=== PATIENT | male | born 1960 | race Caucasian/White ===

== ENCOUNTER 2017-01-25 14:45 | Day surgery (SDC) | payer BC ==
--- NOTE | ~2017-01-25 | OP ---
Record Of Operation [facility] [address] [place]. [address] NAME: TAMMY LOREDO : 58 STATUS : [facility]#: [id number] AGE: 56 ADM/REG DATE : 01/25/17 MR#: [id number] REPORT SERV DATE: 01/25/17 DICTATED BY: MAKI SORIA DATE: 01/25/17 REPORT STATUS : Draft TRANSCRIBED BY: MODL DATE: 01/25/17 DATE OF PROCEDURE: 01/25/2017 PREOPERATIVE DIAGNOSIS: Previous correction of right small finger mallet finger/repair of distal tendon slip, 10/20/2016 with: 1. Loss of repair/loose suture anchor. 2. Infection. PROCEDURE: Exploration of dorsal DIP joint region with: 1. Removal of suture anchors/attach sutures. 2. Cultures of area. 3. Irrigation and debridement of wound. 4. Wound closure over vancomycin powder. ADJUSTER PIANO ACTION: Radha Thomas. ANESTHESIA: Local MAC. ESTIMATED BLOOD LOSS: 1 mL. COMPLICATIONS: None. DISPOSITION: The patient tolerated the procedure well and was brought to recovery room in stable condition. PROCEDURE NOTE: The patient was brought to the operating room and placed in supine position. After IV sedation was given, 10 mL of 1% lidocaine plain was injected at the base of the finger after prepping the area. A surgical time-out was performed prior to the injection and afterwards the right upper extremity distal to the elbow was prepped and draped in usual sterile manner. A second surgical time-out was performed and all were in agreement and a finger tourniquet was placed at the base of the finger. A 15 blade scalpel was used to make an incision in the previous dorsal wound area. The skin was incised and a small amount of pus emanated from the area and this was taken for cultures x2. Slightly deeper was the suture anchor which was loose, which was the attach sutures. This was removed and then a rongeur was used to remove nonviable scar tissue in the area and some of this was sent for cultures as well. Afterwards 2 L of normal saline was used to irrigate the wound including the DIP joint. After adequate treatment was carried out, the wound was packed with vancomycin powder and closed with 3-0 nylon suture. A sterile dressing was applied after the tourniquet was released and the patient was taken out of general anesthesia and brought to recovery room in stable condition. RM/BONG Record Of [place] [address] [place]. [address] NAME: TAMMY LOREDO : 58 STATUS : [facility] PAT#: [id number] AGE: 56 ADM/REG DATE : 01/25/17 MR#: [id number] REPORT SERV DATE: 01/25/17 DICTATED BY: MAKI SORIA DATE: 01/25/17 REPORT STATUS : Draft TRANSCRIBED BY: BONG DATE: 01/25/17 Maki Soria M.D. / [id number] CC: Ana Thomas M.D.
[2017-01-25 15:59] LABS: HEMATOCRIT 51.1 % (40.0-51.0); HEMOGLOBIN 18.1 g/dL (13.6-17.8)
[2017-01-25 16:12] LABS: BUN (BLOOD UREA NITROGEN) 15 MG/DL (6-23); CALCIUM, SERUM 9.4 MG/DL (8.5-10.4); CHLORIDE, SERUM 107 MMOL/L (96-112); CO2 (CARBON DIOXIDE) 28 MMOL/L (24-34); CREATININE 1.16 MG/DL (0.70-1.30); GFR AFRICAN AMERICAN 81 ML/MIN (>=60); GFR NON AFRICAN AMERICAN 70 ML/MIN (>=60); GLUCOSE, SERUM 93 MG/DL (60-99); POTASSIUM, SERUM 3.7 MMOL/L (3.5-5.3); SODIUM, SERUM 141 MMOL/L (135-148)
[2017-02-27] MEDS ORDERED: ASA5GR PO (10:55)
[2017-02-27] MEDS ORDERED: NIASPAN500 PO (10:55)
[2017-02-27] MEDS ORDERED: CRESTOR20 MG PO (10:55)
[2017-02-27] MEDS ORDERED: WELLSR150 PO (10:56)
[2017-02-27] MEDS ORDERED: [UNRECOGNIZED DRUG - OTHER] PO (10:57)
[2017-02-27] MEDS ORDERED: MULTIVIT/MIN PO (10:57)
[2017-02-27] MEDS ORDERED: SUPER B COMP PO (10:57)
[2017-02-27] MEDS ORDERED: L-CARNITINE500 M1 PO (10:59)
[2017-02-27] MEDS ORDERED: REPATHA SQ (11:24)
[2017-02-27] MEDS ORDERED: ARGININE PO (11:25)
[2017-02-27] MEDS ORDERED: [UNRECOGNIZED DRUG - OTHER] PO (11:25)
[2017-02-27] MEDS ORDERED: GARCINIA PO (11:26)
[2017-02-27] MEDS ORDERED: L-TYROSINE PO (11:27)
== END 2017-01-25 19:09 | disposition home or self-care (01) ==
LOC: SDC 14:45
PROVIDERS: Orthopaedic Surgery Hand Surgery
PROC: 0RJ Upper Joints, Inspection (ICD-10-PCS; principal; 2017-01-25 11:45)
DX: L02.511 Cutaneous abscess of right hand (principal); E78.5 Hyperlipidemia, unspecified; E78.00 Pure hypercholesterolemia, unspecified; Z99.89 Dependence on other enabling machines and devices; Z98.890 Other specified postprocedural states; Z83.3 Family history of diabetes mellitus; Z88.2 Allergy status to sulfonamides; Z88.1 Allergy status to other antibiotic agents; Z87.891 Personal history of nicotine dependence
CPT/HCPCS: 80048; 85014; 85018; 87015; 87070; 87075; 87102; 87116; 87205; 88300; 93005; J0690; J2250; J3370